=== PATIENT | female | born 1985 | race African-American/Black ===

== ENCOUNTER 2019-11-12 17:40 | Emergency (ER) | payer OTHER, SELFPAY ==
[2019-11-12 17:51] VITALS: BP 120/60; PULSE 82; RESP 16; TEMP 37.6; O2SAT 100
--- NOTE | 2019-11-12 18:27 | ED.FEMALEGU ---
HPI - Female Genitourinary General Chief complaint: Urogenital-Female Stated complaint: UTI Time Seen by Provider: 11/12/19 18:27 Source: patient Mode of arrival: ambulatory Limitations: no limitations History of Present Illness HPI Narrative: Evita Gordon is a 33 yo female with no PMH who comes to express care with complaints of dysuria and burning with urination x3 days. Related Data Home Medications Medication Instructions Recorded Confirmed No Home Medications 11/12/19 11/12/19 Allergies Allergy/AdvReac Type Severity Reaction Status Date / Time No Known Allergies Allergy Verified 11/12/19 18:43 Review of Systems Review of Systems: Narrative: CONSTITUTIONAL: Denies fever, chills, sweats. EYES: Denies visual changes, redness, discharge. ENT: Denies rhinorrhea, congestion, sore throat, otalgia. CARDIOVASCULAR: Denies chest pain, palpitations, edema. RESPIRATORY: Denies dyspnea, wheezing, cough GASTROINTESTINAL: Denies abdominal pain, nausea, vomiting, diarrhea. GENITOURINARY: has dysuria, no hematuria, abnormal discharge SKIN: Denies rash or itching. NEUROLOGIC: Denies numbness, or focal weakness. PSYCHIATRIC: Denies anxiety or depression. [facility] Family History Family History Other No active medical problems Social History Social History (Updated 11/12/19 @ 18:40 by Chanel Noel CNP) Smoking status: Never smoker Occupation/Education: occupation Comments At time of signature, I agree with nursing past medical, surgical, social and family history. There is no relevant family history pertinent to the presenting complaint. Exam Narrative: Exam Narrative: GENERAL: This is a well-nourished, well-developed patient, in no apparent distress. HEAD: normocephalic, atraumatic. EYES: PERRL. Sclera clear/white. Vision is grossly intact. EARS: External ears normal, Hearing grossly intact. NOSE: External nose normal with no obvious nasal discharge, nares without redness, no rhinorrhea. THROAT: Mucous membranes moist, NECK: Neck supple, non-tender w CARDIOVASCULAR: Regular rate and rhythm without murmurs, gallops, or rubs. RESPIRATORY: Clear to auscultation. Breath sounds equal bilaterally. No wheezes, rales, or rhonchi. GASTROINTESTINAL: Abdomen soft, non-tender, SKIN: warm, intact with no suspicious lesions or rash, good texture and turgor. NEURO: awake, alert, and oriented to person, place and time. There were no obvious focal neurologic abnormalities. Steady gait EXTREMITIES: Normal range of motion. No edema. BACK: Nontender without deformity or crepitance. Course Course Emergency Course: UA-positive for leukocytes and blood Started on Keflex; given Diflucan for complications from antibiotics Follow-up with primary Vital Signs Vital signs: Vital Signs Temperature 99.6 F 11/12/19 17:51 Pulse Rate 82 11/12/19 17:51 Respiratory Rate 16 11/12/19 17:51 Blood Pressure 120/60 11/12/19 17:51 Pulse Oximetry 100 11/12/19 17:51 Temperature 99.6 F 11/12/19 17:51 Pulse Rate 82 11/12/19 17:51 Respiratory Rate 16 11/12/19 17:51 Blood Pressure 120/60 11/12/19 17:51 Pulse Oximetry 100 11/12/19 17:51 MDM - Female Genitourinary Differential Diagnosis Differential diagnosis: Likely urinary tract infection, bacterial vaginosis, cystitis and other Lab Data Labs: Urine Glucose Negative Reference Range: Negative Urine Bilirubin Negative Reference Range: Negative Urine Ketone Trace Reference Range: Negative Urine Specific [place] 1.030 Reference Range:1.001-1.035 Urine Blood 1+ Reference Range: Negative * * Urine pH 5.5 Reference Range: 5.0-9.0 Urine Protein Negative Reference Ran
== END 2019-11-12 18:46 | disposition home or self-care (01) ==
PROVIDERS: Emergency Provider Nurse Practitioner
DX: N30.01 Acute cystitis with hematuria (principal)
CPT/HCPCS: 81003; 87077; 87086; 87088; 87186; 99203; G0463

== ENCOUNTER 2020-06-19 11:55 | Emergency (ER) | payer OTHER, SELFPAY ==
--- NOTE | 2020-06-19 12:00 | ED.GENADULT ---
HPI - General Adult General Stated complaint: STD Time Seen by Provider: 06/19/20 11:59 Source: patient Mode of arrival: ambulatory Limitations: no limitations Related Data Home Medications Medication Instructions Recorded Confirmed No Home Medications 11/12/19 11/12/19 Allergies Allergy/AdvReac Type Severity Reaction Status Date / Time No Known Allergies Allergy Verified 11/12/19 18:43 Review of Systems Review of Systems: Narrative: CONSTITUTIONAL: Denies fever, chills, or sweats. EYES: Denies visual changes, redness, or discharge. ENT: Denies rhinorrhea, congestion, sore throat, or otalgia. CARDIOVASCULAR: Denies chest pain, palpitations, or edema. RESPIRATORY: Denies cough or dyspnea. GASTROINTESTINAL: Denies abdominal pain, nausea, vomiting, or diarrhea. GENITOURINARY: Denies dysuria or hematuria. SKIN: Denies rash or itching. MUSCULOSKELETAL: Denies back pain, joint pain, or myalgia. NEUROLOGIC: Denies headache, numbness, or weakness. PSYCHIATRIC: Denies anxiety or depression. [facility] Family History Family History Other No active medical problems Social History Social History Smoking status: Never smoker Comments At the time of my signature I agree with nursing past medical history, surgical, social, and family history. There is no relevant family history pertinent to the presenting complaint. Exam Narrative: Exam Narrative: GENERAL: Well-appearing, well-nourished, and in no acute distress. HEAD: Normocephalic, atraumatic. EYES: PERRLA and EOMI. ENT: Nares clear, no rhinorrhea or epistaxis. Mucous membranes moist. NECK: Supple. No lymphadenopathy CHEST: Clear to auscultation. No respiratory distress. HEART: Regular rate and rhythm. No murmur heard. Normal peripheral pulses. ABDOMEN: Soft, nontender, nondistended, normal active bowel sounds. EXTREMITIES: Normal range of motion. No edema. SKIN: Warm, dry, no rash. NEURO: No focal deficits. Alert and oriented x3. Course Vital Signs Vital signs: Vital signs reviewed Medical Decision Making Differential Diagnosis Differential Diagnosis: Differential diagnosis: Gonorrhea, chlamydia, Trichomonas, bacterial vaginosis, herpes, HIV, yeast infection, urinary tract infection. Critical Care Time Critical Care Time Critical Care Time: No Discharge Plan Discharge Prescriptions: No Action cephalexin [Keflex] 500 mg capsule 500 mg PO Q12H Qty: 14 RF: 0 No Home Medications RF: 0 fluconazole [Diflucan] 150 mg tablet 150 mg PO DAILY Qty: 2 RF: 0
[2020-06-19 12:06] VITALS: BP 110/48; PULSE 86; RESP 16; TEMP 36.7; O2SAT 100
--- NOTE | 2020-06-19 13:13 | PC.NURSE ---
at 1240 decided, due to needing to be at work at 130, did not have time to be examined and treated. stated would prefer to come back later.
== END 2020-06-19 12:40 | disposition left against medical advice (07) ==
LOC: EXPCOLL 11:59
PROVIDERS: Emergency Provider Nurse Practitioner Family
DX: Z53.21 Procedure and treatment not carried out due to patient leaving prior to being seen by health care provider (principal)
CPT/HCPCS: 99199

== ENCOUNTER 2020-07-31 12:57 | Emergency (ER) | payer OTHER, SELFPAY ==
[2020-07-31 13:15] VITALS: BP 123/78; PULSE 85; RESP 16; TEMP 36.5; O2SAT 100
--- NOTE | 2020-07-31 13:21 | ED.GENADULT ---
HPI - General Adult General Chief complaint: Wound/Laceration Stated complaint: Dog bite on right calf and right side Time Seen by Provider: 07/31/20 13:21 Source: patient and RN notes reviewed Mode of arrival: ambulatory Limitations: no limitations History of Present Illness HPI narrative: 34-year-old -[place] female complaints of animal bite to RT upper and lower leg for the past 5 days. No treatment. Mild abrasion with discomfort. No swelling and redness. Denies tingling or numbness. Denies immobility. Exacerbating factors consist of palpation. No relieving factors. Denies altered sensation, back pain, neck pain, and suspected foreign body. Denies falling, hitting head, or loss of consciousness. LMP 07/22/20. Remains active. Tetanus vaccine NOT up-to-date, will update today. 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 The patient reports she have not been diagnosed with COVID-19. The patient reports she is not waiting for the results of a COVID-19 lab test. The patient reports she do not have fever, chills, weakness, or fatigue. The patient reports she do not have a new or worsening cough or shortness of breath. Denies chest pain. The patient reports she do not have any rhinorrhea, congestion, sore throat, loss of taste, nausea, vomiting, abdominal pain, and diarrhea. Tolerating po intake well. Denies recent traveling. Denies concerns for COVID-19 or exposures been home with limited outdoor exposure except for essential household needs, work, and return home. At this time, patient is not suspected of having COVID-19. Urinary complaints for 1 day. Dysuria consist of burning, frequency, and urgency.? No treatment.? Denies fever or chills. No significant pelvic pain. No vaginal discharge.? No concerns for STDs. Exacerbating factors urinating.? Denies hematuria or vaginal bleeding. Denies being , LMP 07/22/20.? No flank pain. Denies nausea, vomiting, and abdominal pain.? Tolerating liquids well.? Remains active. Some parts of this dictation were generated by voice recognition software and may contain typographical and/or grammatical inaccuracies. Related Data Allergies Allergy/AdvReac Type Severity Reaction Status Date / Time No Known Allergies Allergy Verified 11/12/19 18:43 Review of Systems Review of Systems: Narrative: CONSTITUTIONAL: Denies fever, chills, sweats. EYES: Denies visual changes, redness, discharge. ENT: Denies rhinorrhea, congestion, sore throat, otalgia. CARDIOVASCULAR: Denies chest pain, palpitations, edema. RESPIRATORY: Denies dyspnea, wheezing, cough. GASTROINTESTINAL: Denies abdominal pain, nausea, vomiting, diarrhea. GENITOURINARY: Complains of dysuria (burning, frequency, and urgency). Denies hematuria, abnormal discharge. SKIN: Denies rash or itching. Complains of animal bite to RT upper and lower leg with mild redness, swelling, discomfort. No drainage MUSCULOSKELETAL: Denies acute back pain, joint pain, or myalgia. NEUROLOGIC: Denies numbness or focal weakness. PSYCHIATRIC: Denies anxiety or depression. All systems reviewed & are unremarkable except as noted in HPI and below. [facility] Past Medical History Medical History (Updated 08/01/20 @ 00:00 by Frank Corona) delivery delivered Wrist fracture, right Surgical History Surgical History (Updated 07/31/20 @ 13:41 by TIGIST Wilson) H/O section X5 Family History Family History (Updated 07/31/20 @ 13:41 by TIGIST Wilson) Father Alive and well Mother , Murdered No problems noted. Other No active medical problems Social History Social History (Updated 07/31/20 @ 13:42 by TIGIST Wilson) Smoking status: Never smoker Tobacco type: cigarettes Second hand tobacco smoke exposure: Yes Alcohol intake: never Substance use: never Living arrangements: with family Occupation/Education: occupation Additional occupation/education comments: [employer]
--- NOTE | 2020-07-31 13:36 | PC.NURSE ---
1320 in br to obtain ua spec.
[2020-07-31] MEDS: TETANUS,DIPHTHERIA,AC PERTUSSIS ADULT (0.5 ML) BOOSTRIX IM (13:43)
== END 2020-07-31 14:03 | disposition home or self-care (01) ==
PROVIDERS: Emergency Provider Nurse Practitioner Family
DX: S70.311A Abrasion, right thigh, initial encounter (principal); S80.811A Abrasion, right lower leg, initial encounter; W54.0XXA Bitten by dog, initial encounter; R30.0 Dysuria; Z23 Encounter for immunization
CPT/HCPCS: 81003; 87077; 87086; 87088; 87186; 90471; 90715; 99213; G0463

== ENCOUNTER 2021-03-02 12:07 | Outpatient (CLI) | payer OTHER, SELFPAY ==
--- NOTE | ~2021-03-02 | XR_ITS ---
EXAMINATION: XR lumbar spine 2-3V DATE: 03/02/2021 12:23 INDICATION: Low back pain and mid abdominal pain. TECHNIQUE: Anteroposterior and lateral views of the lumbar spine, and cone-down lateral view of the l umbosacral junction were obtained. COMPARISON: None. FINDINGS: 5 degrees lower lumbar dextrocurvature measured between L2 and L5. Sagittal alignment is normal.. Marcos tebral body and disc heights are normal. No significant lumbar facet osteoarthritis appreciated. Bila teral sacral iliac joints are normal. Multiple likely tubal ligation clips in the pelvis. Lung bases are clear. IMPRESSION: 1. 5 degree lower lumbar dextrocurvature. Otherwise unremarkable lumbar spine. Reviewed, dictated and finalized at location A.
== END 2021-03-02 12:08 | disposition home or self-care (01) ==
LOC: ANHIMG 12:09
PROVIDERS: PCP Physician Assistant; Visit Provider Physician Assistant
DX: M54.5 Low back pain (principal); R10.9 Unspecified abdominal pain; M41.86 Other forms of scoliosis, lumbar region
CPT/HCPCS: 72100

== ENCOUNTER 2023-03-20 11:41 | Emergency (ER) | payer OTHER, SELFPAY ==
--- NOTE | ~2023-03-20 | XR_ITS ---
EXAMINATION: XR wrist RT min 3V DATE: 03/20/2023 12:04 INDICATION: Right humerus pain post injury 3 weeks prior TECHNIQUE: Posteroanterior, ulnar deviation, oblique, and lateral views of the right wrist were obtai anatoliy. COMPARISON: none FINDINGS: 3 mm ulnar minus variance. Suggestion of old healed fractures of the distal right radial diaphysis an d more proximal mid ulnar diaphysis. Subacute appearing avulsion fracture of the ulnar styloid proces s with mild ulnar angulation and 2-3 mm distraction of the radial side of the fracture. There is soft tissue swelling surrounding the fractured ulnar styloid process. No other recent fractures identifie d. Suggestion of cystic changes with increased lucency but with thin sclerotic margins at the central aspect of the scaphoid. This could be degenerative in etiology with mild osteoarthritis or dressed b y mild nonuniform joint space narrowing at the scaphoid capitate articulation of the midcarpal joint. Joint spaces are otherwise unremarkable. IMPRESSION: 1. Mild distraction of a subacute appearing fracture of the ulnar styloid process. Reviewed, dictated and finalized at location A. IMPRESSION: 1. Mild distraction of a subacute appearing fracture of the ulnar styloid proce ss.
[2023-03-20 11:53] VITALS: BP 123/70; PULSE 94; RESP 16; TEMP 36.6; O2SAT 99
--- NOTE | 2023-03-20 12:19 | ED.UPPEXIN ---
HPI - Extremity Injury (Upper) General Chief Complaint: Extremity Injury, Upper Stated Complaint: right hand pain Time Seen by Provider: 03/20/23 12:20 Source: patient, RN notes reviewed and old records reviewed Mode of arrival: ambulatory Limitations: no limitations History of Present Illness HPI narrative: 37-year-old female presents to the [facility] with complaints of right wrist pain that started when she fell 3 weeks ago. Tenderness along the ulnar styloid. States that she treated as a sprain with icing it, elevating it, Franki wrap and it is not getting any better. MD complaint: injury to: right and wrist Related Data Allergies Allergy/AdvReac Type Severity Reaction Status Date / Time No Known Allergies Allergy Verified 03/20/23 11:52 Review of Systems Review of Systems: All systems reviewed & are unremarkable except as noted in HPI and below Constitutional: Constitutional: Reports no additional constitutional complaints Eyes: Eyes: Reports no additional eye complaints ENT: Reports system reviewed and no additional complaints, except as documented Cardiovascular: Cardiovascular: Reports no additional cardiovascular complaints, Denies chest pain and Denies dyspnea Respiratory: Respiratory: Reports no additional respiratory complaints, Denies chest congestion, Denies cough and Denies dyspnea Gastrointestinal: Gastrointestinal: Reports no additional gastrointestinal complaints, Denies abdominal pain, Denies nausea and Denies vomiting Musculoskeletal: Musculoskeletal: Reports as per HPI and Reports arthralgias (right wrist) Integumentary/Breasts: Skin/Breast: Reports system reviewed and no additional complaints, except as docu Neurologic: Reports system reviewed and no additional complaints, except as documented Psychiatric: Psychiatric: Reports no additional psychiatric complaints Allergic/Immunologic: Allergic/Immunologic: Reports no additional allergic/immunologic complaints [facility] Past Medical History Medical History delivery delivered Wrist fracture, right Surgical History Surgical History H/O section X5 Family History Family History Father Alive and well Mother , Murdered No problems noted. Other No active medical problems Social History Social History Smoking status: Never smoker Tobacco type: cigarettes Second hand tobacco smoke exposure: Yes Alcohol intake: never Substance use: never Living arrangements: with family Occupation/Education: occupation Additional occupation/education comments: [employer] Gender identity (if verbalized by the patient): Female Sexual Orientation (if Verbalized by the Patient): Straight or Heterosexual Comments At the time of my signature, I reviewed and agree with the nursing past medical, surgical, social, and family history. There is no relevant family history pertinent to the patient complaint. Exam Const: General: cooperative, healthy appearing, comfortable, no acute distress, well developed, alert and well nourished Nutritional Appearance: well nourished Orientation/consciousness: patient oriented x3 Limitations: no limitations HENMT: Head: normal to inspection Ears: hearing grossly normal bilaterally and external ears normal Face/Nose/Sinus: Normal external nose present, Normal nares present, Normal nasal mucous membranes and turbinates present and normal facial exam Face and sinus: normal facial exam Eyes: General: appearance normal, both eyes and all related structures Alignment and Position: alignment normal Periorbital: periorbital findings normal Pupils: Equal, round and reactive pupils present EOM: EOMs intact bilaterally Neck: Neck: normal visual inspection, full
== END 2023-03-20 13:24 | disposition home or self-care (01) ==
PROVIDERS: Emergency Provider Nurse Practitioner
DX: S52.611A Displaced fracture of right ulna styloid process, initial encounter for closed fracture (principal); W19.XXXA Unspecified fall, initial encounter
CPT/HCPCS: 29125; 73110; 99214; A4565; G0463

== ENCOUNTER 2023-12-12 14:19 | Emergency (ER) | payer OTHER, SELFPAY ==
[2023-12-12 14:31] VITALS: BP 108/83; PULSE 91; RESP 16; TEMP 36.6; O2SAT 100
--- NOTE | 2023-12-12 14:38 | ED.GENADULT ---
HPI - General Adult General Chief complaint: Eye Problems Stated complaint: L HAND TINGLING/EYES DRAINING Source: patient, RN notes reviewed and old records reviewed Mode of arrival: ambulatory Limitations: no limitations History of Present Illness HPI narrative: 37-year-old female presents to [facility] with complaints of bilateral eye redness, irritation, drainage this started 1 month ago. Patient also complaining left thumb and index finger numbness and tingling for 2 weeks. Patient denies injury. Patient states has called her primary care physician but cannot get in until January 14. Patient denies chest pain, shortness of breath. Related Data Allergies Allergy/AdvReac Type Severity Reaction Status Date / Time No Known Allergies Allergy Verified 12/12/23 14:31 Review of Systems Constitutional: Constitutional: Reports no additional constitutional complaints, Denies body ache(s), Denies chills, Denies fatigue, Denies fever(s) and Denies headache(s) Eyes: Eyes: Reports no additional eye complaints, Denies blurry vision, Denies exophthalmos, Denies change in vision, Denies decreased night vision, Denies diplopia, Reports eye discharge, Reports irritation, Reports itchy eyes and Denies eye pain ENT: Reports system reviewed and no additional complaints, except as documented, Denies vertigo, Denies dizziness, Denies ear discharge, Denies otalgia, Denies facial pain, Denies headache(s), Denies nasal congestion, Denies nasal discharge, Denies sinus pain, Denies sinus pressure and Denies sore throat Cardiovascular: Cardiovascular: Reports no additional cardiovascular complaints, Denies chest pain, Denies chest pain at rest, Denies rapid heart rate and Denies dyspnea Respiratory: Respiratory: Reports no additional respiratory complaints, Denies chest congestion, Denies cough, Denies pain on inspiration, Denies pain with cough and Denies dyspnea Gastrointestinal: Gastrointestinal: Denies abdominal pain, Denies diarrhea, Denies nausea and Denies vomiting Musculoskeletal: Musculoskeletal: Reports numbness and Reports tingling Comments: Numbness and tingling in left 1st and 2nd digit of hand Integumentary/Breasts: Skin/Breast: Denies rash Neurologic: Reports system reviewed and no additional complaints, except as documented, Denies vertigo, Denies dizziness and Denies headache(s) Endocrine: Endocrine: Denies fatigue PMFSH Past Medical History Medical History delivery delivered Wrist fracture, right Surgical History Surgical History H/O section X5 Family History Family History Father Alive and well Mother , Murdered No problems noted. Other No active medical problems Social History Social History Smoking status: Never smoker Tobacco type: cigarettes Second hand tobacco smoke exposure: Yes Alcohol intake: never Substance use: never Living arrangements: with family Occupation/Education: occupation Additional occupation/education comments: [employer] Gender identity (if verbalized by the patient): Female Sexual Orientation (if Verbalized by the Patient): Straight or Heterosexual Comments At the time of my signature, I reviewed and agree with the nursing past medical, surgical, social, and family history. There is no relevant family history pertinent to the patient complaint. Exam Const: General: cooperative, healthy appearing, no acute distress and well nourished Nutritional Appearance: well nourished Orientation/consciousness: patient oriented x3 Limitations: no limitations HENMT: Head: normal to inspection and normocephalic Ears: external ears normal Face/Nose/Sinus: normal facial exam Face and sinus: normal facial exam Mo
== END 2023-12-12 14:46 | disposition home or self-care (01) ==
PROVIDERS: Emergency Provider Registered Nurse; PCP Physician Assistant
DX: H10.9 Unspecified conjunctivitis (principal); M77.8 Other enthesopathies, not elsewhere classified
CPT/HCPCS: 99213; G0463